=== PATIENT | female | born 1995 | race African-American/Black ===

== ENCOUNTER 2019-03-15 13:44 | Emergency (ER) | payer OTHER ==
--- NOTE | 2019-03-15 14:39 | ER Document Report ---
ED Medical Screen (RME) - General Chief Complaint: Abdominal Pain Stated Complaint: ABDOMINAL PAIN Time Seen by Provider: 03/15/19 14:37 Mode of Arrival: Ambulatory Information source: Patient Notes: 23-year-old female presented to ED for complaint of a dull pain to the right flank area and a cramping pain across the abdomen. She states she is about 8 weeks . She is alert oriented respirations regular nonlabored speaking in full sentences. Nausea on and off no vomiting no diarrhea. 1 para 0. Urine positive at home and at [facility]. I have greeted and performed a rapid initial assessment of this patient. A comprehensive ED assessment and evaluation of the patient, analysis of test results and completion of medical decision making process will be conducted by an additional ED providers. - Related Data Allergies/Adverse Reactions: No Known Allergies Allergy (Verified 03/15/19 14:36) Physical Exam - Vital signs Vitals: Temp Pulse Resp BP Pulse Ox 98.7 F 98 18 115/78 100 03/15/19 14:05 03/15/19 14:05 03/15/19 14:05 03/15/19 14:05 03/15/19 14:05 Course - Vital Signs Vital signs: Temp Pulse Resp BP Pulse Ox 98.7 F 98 18 115/78 100 03/15/19 14:05 03/15/19 14:05 03/15/19 14:05 03/15/19 14:05 03/15/19 14:05
[2019-03-15 15:30] LABS: ABSOLUTE MONOCYTES (AUTO) 0.6 10^3/uL (0.1-1.4); ABSOLUTE NEUT (AUTO) 4.7 10^3/uL (1.7-8.2); BASOPHILS % (AUTO) 0.4 % (0-2); EOSINOPHILS % (AUTO) 0.3 % (0-6); HEMATOCRIT 41.3 % (36.0-47.0); LYMPHOCYTES % (AUTO) 27.4 % (13-45); MEAN CORPUSCULAR HEMOGLOBIN 29.8 pg (27.0-33.4); MEAN CORPUSCULAR VOLUME 88 fl (80-97); PLATELET COUNT 281 10^3/uL (150-450); RED BLOOD COUNT 4.71 10^6/uL (3.72-5.28); RED CELL DISTRIBUTION WIDTH 14.7 % (11.5-14.0); SEGMENTED NEUTROPHILS % (AUTO) 63.9 % (42-78); TOTAL CELLS COUNTED % (AUTO) 100 %; WHITE BLOOD COUNT 7.4 10^3/uL (4.0-10.5)
[2019-03-15 15:49] LABS: ALBUMIN 4.7 g/dL (3.5-5.0); ALKALINE PHOSPHATASE 46 U/L (38-126); ANION GAP 13 (5-19); ASPARTATE AMINO TRANSFERASE 25 U/L (14-36); BILIRUBIN,DIRECT 0.2 mg/dL (0.0-0.4); BILIRUBIN,TOTAL 0.8 mg/dL (0.2-1.3); BLOOD UREA NITROGEN 7 mg/dL (7-20); CALCIUM 10.1 mg/dL (8.4-10.2); CARBON DIOXIDE 24 mmol/L (22-30); CHLORIDE 101 mmol/L (98-107); GLUCOSE 71 mg/dL (75-110); POTASSIUM 3.9 mmol/L (3.6-5.0); TOTAL PROTEIN 8.4 g/dL (6.3-8.2)
--- NOTE | 2019-03-15 16:12 | RADIOLOGY REPORT (SQ) ---
EXAM DESCRIPTION: U/S RETROPERITON (RENAL/AORTA) COMPLETED DATE/TIME: 03/15/2019 3:56 pm REASON FOR STUDY: Abdominal lip pain, flank pain, COMPARISON: None. TECHNIQUE: Dynamic and static grayscale images acquired of the kidneys and bladder and recorded on P ACS. Additional selected color Doppler and spectral images recorded. LIMITATIONS: None. FINDINGS: RIGHT KIDNEY: Normal size measuring 10.8 cm. Normal echogenicity. No solid or suspicious m asses. No hydronephrosis. No calcifications. LEFT KIDNEY: Normal size measuring 9.9 cm. Normal echogenicity. No solid or suspicious masses. No hy dronephrosis. No calcifications. BLADDER: Decompressed. OTHER FINDINGS: No other significant finding. IMPRESSION: Unremarkable renal ultrasound. No hydronephrosis. TECHNICAL DOCUMENTATION: JOB ID: [id number] [employer]- All Rights Reserved Reading location - IP/workstation name: [email or web address]
--- NOTE | 2019-03-15 16:26 | RADIOLOGY REPORT (SQ) ---
EXAM DESCRIPTION: U/S OB TRANSVAGINAL W/O DOP COMPLETED DATE/TIME: 03/15/2019 3:56 pm REASON FOR STUDY: Abdominal pain flank pain COMPARISON: None. TECHNIQUE: Transvaginal static and realtime grayscale images acquired of the pelvis. Additional manny cted spectral and color Doppler images recorded. All images stored on PACs. bHCG: Not available CLINICAL DATES: LMP 01/12/2019, JAKE 10/19/2019 LIMITATIONS: None. FINDINGS: FETUS: Single intrauterine . ULTRASOUND EGA: 8 weeks 2 days EFW: Not applicable less than 20 weeks. CRL: 1.8 cm FHR: Nonvisualized SURVEY: Too early to assess. AMNIOTIC FLUID: Adequate amount. PLACENTA: Not yet developed due to early gestation. SUBCHORIONIC BLEED: No. SIZE OF BLEED: Not applicable. UTERUS: Uterus measures 10.6 x 8.7 x 7.3 cm. CERVICAL LENGTH: 2.6 cm Closed. RIGHT ADNEXA: Normal ovary with normal vascular flow. There is a 2.5 x 2.4 x 2.9 cm cyst. No adnexal free fluid. No adnexal masses. LEFT ADNEXA: Nonvisualized. No adnexal free fluid. No adnexal masses. FREE FLUID: None. OTHER: No other significant finding. IMPRESSION: Intrauterine pole measuring 1.8 cm with no heart tones identified compatible with a failed intrauterine . Recommend airplane navigator consultation for further evaluation/manageme nt. Findings discussed with at Bridgett Zayas 1615 hours on 03/15/2019 Trimester of : First trimester - 0 to 13 weeks. TECHNICAL DOCUMENTATION: JOB ID: [id number] [employer]- All Rights Reserved rev-06/27 Reading location - IP/workstation name: [email or web address]
[2019-03-15 16:38] LABS: APPEARANCE,URINE SLIGHTLY-CLOUDY; BILIRUBIN,URINE NEGATIVE (NEGATIVE); COLOR,URINE YELLOW; GLUCOSE, URINE NEGATIVE (NEGATIVE); KETONES,URINE 80 mg/dL (NEGATIVE); PROTEIN,URINE NEGATIVE (NEGATIVE); URINE SPECIFIC GRAVITY 1.023; UROBILINOGEN,URINE NEGATIVE mg/dL (<2.0)
--- NOTE | 2019-03-15 16:53 | ER Document Report ---
ED GI/ - General Chief Complaint: Abdominal Cramping Stated Complaint: ABDOMINAL PAIN Time Seen by Provider: 03/15/19 14:37 Primary Care Provider: HORACE AYALA [Primary Care Provider] - Follow up as needed Mode of Arrival: Ambulatory Notes: Patient is a 23-year-old -Stateless female who is G1, P0 at approximately 8 weeks gestation per last known menstrual period who presents to the emergency department with a chief complaint of back pain. She states the pains been present in the lower back for approximately 2 weeks. She reports that it waxes and wanes. She states it seemed to worsen recently and was associated with some rare and transient periumbilical discomfort. She denies any vaginal bleeding or discharge. Denies any urinary complaints. States she was concerned so she came for evaluation of the . She reports that she had positive urine testing back in January. Had an ultrasound last Friday showing no heart tones in approximately 8 weeks gestation. She denies any new symptoms since that time. TRAVEL OUTSIDE OF THE [place] IN LAST 30 DAYS: No - Related Data Allergies/Adverse Reactions: No Known Allergies Allergy (Verified 03/15/19 14:36) Past Medical History - General Information source: Patient - Social History Smoking Status: Never Smoker Frequency of alcohol use: None Drug Abuse: None Family History: None Patient has suicidal ideation: No Patient has homicidal ideation: No Review of Systems - Review of Systems Gastrointestinal: Abdominal pain Musculoskeletal: Back pain -: Yes All other systems reviewed and negative Physical Exam - Vital signs Vitals: Temp Pulse Resp BP Pulse Ox 98.7 F 98 18 115/78 100 03/15/19 14:05 03/15/19 14:05 03/15/19 14:05 03/15/19 14:05 03/15/19 14:05 - General General appearance: Appears well, Alert In distress: None - Respiratory Respiratory status: No respiratory distress Chest status: Nontender Breath sounds: Normal Chest palpation: Normal - Cardiovascular Rhythm: Regular Heart sounds: Normal auscultation - Abdominal Inspection: Normal Distension: No distension Bowel sounds: Normal Tenderness: Nontender Organomegaly: No organomegaly - Back Back: No: CVA tenderness - Neurological Neuro grossly intact: Yes Cognition: Normal Orientation: AAOx4 [place] Coma Scale Eye Opening: Spontaneous [place] Coma Scale Verbal: Oriented Jody Coma Scale Motor: Obeys Commands [place] Coma Scale Total: 15 Speech: Normal - Psychological Associated symptoms: Normal affect, Normal mood - Skin Skin Temperature: Warm Skin Moisture: Dry Skin Color: Normal Course - Re-evaluation Re-evalutation: 03/15/19 16:50 ultrasound today showing 8 weeks gestation with no heart tones. hCG of 9139. There is no prior hCG quant for comparison. Patient is not having any vaginal bleeding, discharge or passage of clots. She has no significant lower abdominal discomfort. Urinalysis showing no evidence of infection. She will return here in 48 hours for repeat hCG, we discussed the possibilities of viable versus nonviable presentation at this time. Discussed need for consultation with BUSINESS CONTINUITY PLANNER on next visit if her hCG is not improving for direction to me dication assisted versus D&C. Counseled her at length regarding the importance of outpatient follow-up and advised they return here or any ER immediately with any new, persistent or worsening symptoms. They verbalized understood and agreed. - Vital Signs Vital signs: Temp Pulse Resp BP Pulse Ox 98.7 F 98 18 115/78 100 03/15/19 14:05 03/15/19 14:05 03/15/19 14:05 03/15/19 14:05 03/15/19 14:05 - Laboratory Result Diagrams: 03/15/19 15:13 03/15/19 15:13 Laboratory results interpreted by me: 03/15/19 03/15/19 03/15/19 15:11 15:13 15:13 RDW 14.7 H Creatinine 0.41 L Glucose 71 L Total Protein 8.4 H Beta HCG, Quant 9139.80 H Urine Ketones 80 H Urine Ascorbic Acid 40 H Discharge - Discharge Clinical Impression: , threatened, early Condition: Stable Disposition: HOME, SELF-CARE Instructions: Threatened Miscarriage ([facility]) Additional Instructions: Follow-up with your regular doctor in 2 to 3 days for reevaluation. Return here or any ER immediately with any new, persistent or worsening symptoms. Return here in 48 hours for repeat blood testing. Referrals: HORACE AYALA [Primary Care Provider] - Follow up as needed MAURICE DIAMOND MD [ACTIVE STAFF] - Follow up as needed
[2019-03-15 17:17] VITALS: BP 116/63
== END 2019-03-15 17:18 | disposition home or self-care (01) ==
LOC: ER 13:44
DX: O20.0 Threatened abortion (principal); O99.89 Other specified diseases and conditions complicating pregnancy, childbirth and the puerperium; M54.5 Low back pain; O26.891 Other specified pregnancy related conditions, first trimester; R10.33 Periumbilical pain; Z3A.08 8 weeks gestation of pregnancy
CPT/HCPCS: 36415; 76770; 76817; 80053; 81001; 84702; 85025; 99284